=== PATIENT | female | born 1980 | race Two or more races ===

== ENCOUNTER 2024-07-12 15:46 | Inpatient (IN) | payer OTHER ==
[~2024-07-12] VITALS: Ht 167.6 cm; Wt 95.3 kg
[2024-07-12] MEDS ORDERED: SYNTHROID50 MCG PO (16:15)
[2024-07-12 18:44] LABS: HEMATOCRIT 41.1 % (36.0-45.00); HEMOGLOBIN 13.9 g/dL (12.0-15.00); MEAN CELL VOLUME 79.1 fL (80.00-100.00); MEAN CORPUSCULAR HEMOGLOBIN 26.8 pg (27.00-32.0); MEAN CORPUSCULAR HGB CONC 33.9 g/dl (32.0-36.0); PLATELET COUNT 316 K/uL (150-450); RED CELL DISTRIBUTION WIDTH 14.7 % (11.5-14.5)
[2024-07-12 19:18] LABS: CALCIUM 9.8 mg/dL (8.5-10.1); CREATININE SERUM 0.63 mg/dL (0.55-1.02); GFR 102.19; POTASSIUM 3.14 mEq/L (3.5-5.1)
[2024-07-12] MEDS ORDERED: 0.9 % SODIUM CHLORIDE 1,000 ML IV SCH (22:45)
[2024-07-12] MEDS ORDERED: LEVALBUTEROL HCL 1.25 MG/3 ML SOLUTION IH SCH (22:52)
[2024-07-12] MEDS ORDERED: METHYLPREDNISOLONE SOD SUCC 40 MG VIAL IV SCH (22:56)
[2024-07-12] MEDS ORDERED: POTASSIUM CHLORIDE IN WATER 100 ML IV SCH (22:57)
[2024-07-12] MEDS ORDERED: hydrALAZINE HCL 20 MG VIAL IV PRN (23:00)
[2024-07-12] MEDS ORDERED: ONDANSETRON HCL 4 MG in 0.9 % SODIUM CHLORIDE 50 ML IV PRN (23:00)
[2024-07-12] MEDS ORDERED: ACETAMINOPHEN 500 MG GEL..CAP PO PRN (23:00)
[2024-07-12] MEDS ORDERED: MORPHINE SULFATE 2 MG/ML CARTRIDGE IV PRN (23:00)
[2024-07-12] MEDS ORDERED: METHYLPREDNISOLONE SOD SUCC 40 MG VIAL ONE (23:25)
[2024-07-12] MEDS ORDERED: GUAIFEN/DEXTROMETHORPHAN/PE 10 ML BLIST.PACK PO ONE (23:25)
[2024-07-12] MEDS ORDERED: LEVALBUTEROL HCL 1.25 MG/3 ML SOLUTION IH ONE (23:46)
[2024-07-12] MEDS ORDERED: IPRATROPIUM BROMIDE 0.5 MG/2.5 ML AMPUL.NEB IH ONE (23:46)
[2024-07-13] MEDS ORDERED: PIPERACILLIN/TAZOBACTAM SODIUM 3.375 GM in 0.9 % SODIUM CHLORIDE 100 ML IV SCH
[2024-07-13] MEDS ORDERED: IPRATROPIUM BROMIDE 0.5 MG/2.5 ML AMPUL.NEB IH SCH
[2024-07-13] MEDS ORDERED: PIPERACILLIN/TAZOBACTAM SODIUM 3.375 GM VIAL IV ONE (00:07)
[2024-07-13 00:26] VITALS: BP 133/70
[2024-07-13] MEDS ORDERED: GUAIFEN/DEXTROMETHORPHAN/PE 10 ML BLIST.PACK PO SCH (01:00)
[2024-07-13 03:41] LABS: ABG PH 7.384 (7.35-7.45); ABG PO2 82.3 mmHg (80-100); ABG pCO2 45.3 mmHg (35-45); BICARBONATE 26.5 mmol/l (23-25); SaO2 95.9 %; Tco2 27.9 mmol/l; allen test SATISFACTORY; o2 21 %; puncture site RADIAL LEFT
[2024-07-13] MEDS ORDERED: LEVOTHYROXINE SODIUM 50 MCG TABLET PO SCH (06:00)
[2024-07-13 06:33] LABS: INR 1.05; PARTIAL THROMBOPLASTIN TIME 29.4 SECONDS (22.0-34.0); PROTHROMBIN TIME 11.4 SECONDS (9.0-11.5)
[2024-07-13 07:46] LABS: HEMATOCRIT 38.3 % (36.0-45.00); HEMOGLOBIN 12.9 g/dL (12.0-15.00); MEAN CELL VOLUME 81.1 fL (80.00-100.00); MEAN CORPUSCULAR HEMOGLOBIN 27.3 pg (27.00-32.0); MEAN CORPUSCULAR HGB CONC 33.6 g/dl (32.0-36.0); PLATELET COUNT 256 K/uL (150-450); RED BLOOD COUNT 4.73 M/uL (4.00-6.00); RED CELL DISTRIBUTION WIDTH 14.6 % (11.5-14.5)
[2024-07-13 08:46] LABS: ALBUMIN 3.4 gm/dL (3.4-5.0); ALKALINE PHOSPHATASE 71 U/L (50-136); ALT/SGPT 18 U/L (12-78); ANION GAP 12 (10.0-20.0); AST/SGOT 8 U/L (15-37); BILIRUBIN TOTAL 0.37 mg/dL (0.3-1.2); BILIRUBIN,CONJUGATED < 0.10 mg/dL (0.0-0.2); BILIRUBIN,UNCONJUGATED 0.27 mg/dL (0.0-0.6); BLOOD UREA NITROGEN 20 mg/dL (7-18); BUN CREA RATIO 39 (7.0-25.0); CALCIUM 8.8 mg/dL (8.5-10.1); CARBON DIOXIDE 24 mEq/L (21-32); CHLORIDE 110 mmol/L (98-107); CHOL HDL RATIO 3.9 (0-5.0); CHOLESTEROL 153 mg/dL (0-200); CREATININE SERUM 0.51 mg/dL (0.55-1.02); GFR 130.41; GLOBULINA 3.3 G/DL (2.4-3.5); GLUCOSE FASTING 131 mg/dL (65-100); HDL 39 mg/dl (40-60); LDL 96 mg/dl (0-130); LIPASE 59 U/L (13-75); OSMOLALITY SERUM 288 MOSM/KG (275-295); PHOSPHOROUS 3.4 mg/dL (2.5-4.9); POTASSIUM 3.96 mEq/L (3.5-5.1); SODIUM 142 mmol/L (136-145); TOTAL PROTEIN 6.7 gm/dL (6.4-8.2); TRIGLYCERIDES 89 mg/dL (0-150); VLDL 17 (0-39)
[2024-07-13] MEDS ORDERED: FAMOTIDINE/PF 20 MG in 0.9 % SODIUM CHLORIDE 8 ML IV PUSH SCH (09:00)
[2024-07-13 09:01] LABS: ERYTHROCYTE SEDIMENTATION RATE 38 mm/hr
[2024-07-13 09:23] VITALS: BP 139/66; O2SAT 99
[2024-07-13] MEDS ORDERED: AZITHROMYCIN 500 MG in 0.9 % SODIUM CHLORIDE 250 ML IV SCH (12:00)
[2024-07-13] MEDS ORDERED: CEFTRIAXONE SODIUM 2,000 MG in 0.9 % SODIUM CHLORIDE 100 ML IV SCH (12:00)
[2024-07-13 12:54] LABS: URINE APPEARANCE Clear; URINE BILIRRUBIN Negative (NEGATIVE); URINE BLOOD Negative; URINE COLOR Yellow; URINE GLUCOSE Negative (NEGATIVE); URINE KETONE Negative (NEGATIVE); URINE LEUKOCYTE Negative; URINE NITRATE Negative; URINE PROTEIN Negative (NEGATIVE); URINE UROBILINOGEN 0.2 E.U./dl
[2024-07-13 12:57] LABS: URINE BACTERIA 7.5 uL (0.0-1933); URINE EPITHELIAL CELLS 3.2 uL (0.0-38.8); URINE RBC 2.2 uL (0.0-20.8); URINE WBC 2.4 uL (0.0-23.2)
[2024-07-13 16:00] VITALS: BP 135/80; O2SAT 100
[2024-07-13] MEDS ORDERED: BUDESONIDE 0.5 MG/2 ML AMPUL.NEB IH SCH (21:00)
[2024-07-14 02:24] VITALS: BP 125/66; O2SAT 100
[2024-07-14 08:36] VITALS: BP 133/66
[2024-07-14 17:16] VITALS: BP 114/79; O2SAT 97
[2024-07-15 03:10] VITALS: BP 110/69; O2SAT 98
[2024-07-15 09:36] VITALS: BP 98/68; O2SAT 97
== END 2024-07-15 13:35 | disposition home or self-care (01) | DRG 195 ==
LOC: ER 15:48 → MEDJ 22:58
PROVIDERS: General Practice; ADMIT Internal Medicine; ATTEND Internal Medicine
PROC: BB24ZZZ Computerized Tomography (CT Scan) of Bilateral Lungs (ICD-10-PCS; 2024-07-12)
PROC: 8E0ZXY6 Isolation (ICD-10-PCS; principal; 2024-07-13)
PROC: 3E0F7GC Introduction of Other Therapeutic Substance into Respiratory Tract, Via Natural or Artificial Opening (ICD-10-PCS; 2024-07-13)
DX: J15.7 Pneumonia due to Mycoplasma pneumoniae (principal); U09.9 Post COVID-19 condition, unspecified; R06.09 Other forms of dyspnea; E87.6 Hypokalemia; E03.9 Hypothyroidism, unspecified